=== PATIENT | female | born 2000 | race Caucasian/White ===

== ENCOUNTER 2024-01-09 10:11 | Emergency (ER) | payer BC, SELFPAY ==
[2024-01-09 10:17] VITALS: BP 119/72; PULSE 91; RESP 16; TEMP 37.1; O2SAT 97; BMI 29.0
--- NOTE | 2024-01-09 10:30 | PC.NURSE ---
Pt given spacer for her MSI. Pt knows how to use it,she didnt have one to use. Educated her on the importance of using it.
--- NOTE | 2024-01-09 11:38 | ED_ITS ---
HPI - URI/Sore Throat General Chief Complaint: Upper Respiratory Symptoms Stated Complaint: Cough white stuff coming up, back and ear pain Time Seen by Provider: 01/09/24 11:19 Source: patient Mode of arrival: Ambulatory History of Present Illness HPI Narrative: Patient has history of asthma. Denies does not want a test. Has had cough cold congestion wheezing since this past Friday. Was seen at a local emergency department this past Friday, had a refill of inhaler. But no cough medication or antibiotics given. No chest x-ray was done. Patient is using Flonase with some relief of the nasal congestion. Patient in no distress at this time. Vital signs are reassuring. Patient and family are planning to move to [place] today. Patient also given steroid pack on Friday. Related Data Previous Rx's Medication Instructions Recorded azithromycin 250 mg tablet 250 mg PO DAILY 4 days #4 tabs 01/09/24 (Zithromax) benzonatate 100 mg capsule 100 mg PO TID PRN cough #20 caps 01/09/24 Allergies Allergy/AdvReac Type Severity Reaction Status Date / Time amoxicillin Allergy Verified 01/09/24 10:17 Penicillins Allergy Verified 01/09/24 10:17 Review of Systems Review of Systems Narrative: GENERAL: negative chills, fatigue, malaise, fever, sweats. HEENT: negative sinus pain, ear pain, sore throat, positive nasal congestion RESPIRATORY: Positive wheezing/dyspnea, cough CARDIOVASCULAR: negative chest pain, palpitations GASTROINTESTINAL: negative nausea, vomiting, abdominal pain : negative dysuria, frequency, hematuria MUSCULOSKELETAL: negative muscle or bony pain SKIN: negative rash, skin lesions NEUROLOGIC: negative weakness, numbness Patient History Social History Smoking Status: Unknown if ever smoked Smoking Status: Unknown if ever smoked alcohol intake frequency: holidays/special occasions only Substance Use Type: does not use Exam Narrative Exam Narrative: GENERAL: in no distress, not toxic not dyspneic HEAD: Normocephalic. EYES: Pupils equal round ENT: Mucous membranes moist., bilateral nasal mucosa erythema and edema, no pharyngeal erythema edema or exudates. No malocclusion or trismus. NECK: Trachea midline. CARDIOVASCULAR: Regular rate and rhythm RESPIRATORY: Clear to auscultation. Breath sounds equal bilaterally. No wheezes, rales, or rhonchi. Patient is speaking full sentences. No respiratory distress. Has dry cough at bedside. GASTROINTESTINAL: Abdomen soft, non-tender EXTREMITIES: No gross deformities. BACK: No flank tenderness. NEURO: AOx4. SKIN: Warm and dry PSYCH: Not anxious, is cooperative Initial Vital Signs Initial Vital Signs: Vital Signs Temperature 98.8 F 01/09/24 10:17 Pulse Rate 91 H 01/09/24 10:17 Respiratory Rate 16 01/09/24 10:17 Blood Pressure 119/72 01/09/24 10:17 Pulse Oximetry 97 01/09/24 10:17 Oxygen Delivery Method Room Air 01/09/24 10:17 Course Orders Ordered: ED Orders 01/09/24 11:22 Respiratory Panel (Film Array) Stat 01/09/24 12:31 XR chest 1V Stat Discontinued Medications Azithromycin (Azithromycin 250 Mg Tablet) 500 mg PO NOW ONE Stop: 01/09/24 13:11 Last Admin: 01/09/24 13:29 Dose: 500 mg Documented By: RUDDY Benzonatate (Benzonatate 100 Mg Capsule) 100 mg PO NOW ONE Stop: 01/09/24 11:39 Last Admin: 01/09/24 12:03 Dose: 100 mg Documented By: RUDDY Oxymetazoline HCl (Oxymetazoline Nasal [place] 30 Ml) 2 sprays NASAL NOW ONE Stop: 01/09/24 11:39 Last Admin: 01/09/24 12:04 Dose: 2 sprays Documented By: RUDDY Vital Signs Vital signs: Vital Signs - 8 hr 01/09/24 10:17 01/09/24 13:03 Temperature 98.8 F 98.2 F Pulse Rate 91 H 76 Respiratory Rate 16 16 Blood Pressure 119/72 131/62 Pulse Oximetry 97 96 Oxygen Delivery Method Room Air Room Air MDM - URI/Sore Throat Lab Data Labs: Lab Results 01/09/24 Range/Units 11:22 Chlamy pneumoniae PCR Not detected (Not Detect) Adenovirus (PCR) Not detected (Not Detect) B.parapertussis DNA PCR Not detected (Not Detecte) Coronavirus OC43 (PCR) Not detected (Not Detect) Coronavirus HKU1 (PCR) Not detected (Not Detect) Coronavirus 229E (PCR) Not detected (Not Detect) SARS-CoV-2 (PCR) Not detected (Not Detecte) Coronavirus NL63 (PCR) Not detected (Not Detect) Human Metapneumovir PCR Not detected (Not Detect) Influenza Type A (PCR) Not detected (Not Detect) Influenza Type B (PCR) Not detected (Not Detect) M. pneumoniae (PCR) Detected H (Not Detect) Parainfluenza 1 (PCR) Not detected (Not Detect) Parainfluenza 2 (PCR) Not detected (Not Detect) Parainfluenza 3 (PCR) Not detected (Not Detect) Parainfluenza 4 (PCR) Not detected (Not Detect) RSV (PCR) Not detected (Not Detect) Entero/Rhino (PCR) Not detected (Not Detect) Imaging Data Chest x-ray: Radiologist's Impression: [address] [address] XRay Report Signed Patient: Missy Helm MR#: [id number] : 2000 Acct:[id number] Age/Sex: 23 / F Date of Service: 01/09/24 Loc: ED Accession Number: [id number] Procedure: XR chest 1V Ordering Provider: Allan Gutierrez MD PROCEDURE: XR CHEST 1V INDICATIONS: Cough TECHNIQUE: One view of the chest was acquired. COMPARISON: None. FINDINGS: Surgical changes and devices: None. Lungs and pleura: Right lung field opacity. No pleural effusions or pneumothorax. Mediastinum: Mediastinal contours appear normal. Heart size is normal. Bones and chest wall: No suspicious bony lesions. Overlying soft tissues appear unremarkable. IMPRESSION: Right upper lung field opacity consistent with pneumonia. Recommend follow-up radiographs to ensure resolution. Dictated by: Soren Chavez M.D. on 01/09/2024 at 13:00 Approved by: Soren Chavez M.D. on 01/09/2024 at 13:00 [facility] Narrative Medical decision making narrative: Patient has history of asthma. Denies does not want a test. Has had cough cold congestion wheezing since this past Friday. Was seen at a local emergency department this past Friday, had a refill of inhaler. But no cough medication or antibiotics given. No chest x-ray was done. Patient is using Flonase with some relief of the nasal congestion. Patient in no distress at this time. Vital signs are reassuring. Patient and family are planning to move to [place] today. Patient also given steroid pack on Friday. After history and exam chest x-ray Tessalon Perles Afrin spray, patient already has inhaler and a refill from previous emergency visit this past Friday from another facility. Has steroid pack already. [facility] Medical records reviewed: No recent visit here for this complaint. Differential considered: Includes but not limited to bronchitis viral syndrome COVID rhino virus bronchitis pneumonia seasonal allergies Lab Test results independently reviewed as above. Pertinent findings: Respiratory panel Imaging studies independently reviewed: Chest x-ray right-sided pneumonia Consultations: 1:00 p.m.. Spoke with [facility], infectious Disease, dr delgado, recommend Z-Davis for mycoplasma pneumonia. Monotherapy appropriate. Treatments: Tessalon Perles Afrin spray Zithromax Re-evaluations: 1:17 p.m.. Patient in no distress. Nasal congestion feels much better after Afrin. She does agree for Zithromax after my discussion with infectious disease. She has in no respiratory distress. Return precautions reviewed. She desires discharge home. Patient does understand not to use Afrin spray more than 3 days, 1 spray each nostril daily. Discussion: Appropriate for discharge home. Patient in no respiratory distress. Not requiring supplemental oxygen. Reviewed with her mycoplasma pneumoniae infection with pneumonia on the right side. Return precautions. She desires discharge home. Diagnosis: Atypical pneumonia Discharge Plan Departure Patient Disposition: Home Clinical Impression: Primary atypical pneumonia due to Mycoplasma pneumoniae Qualifiers: Laterality: right Lung location: unspecified part of lung Qualified Code(s): J15.7 - Pneumonia due to Mycoplasma pneumoniae Instructions: DI for Atypical Pneumonia Activity Restrictions/Additional Instructions: Your being treated for mycoplasma pneumoniae infection that is causing pneumonia on the right side of your lung. However, return if worse if any questions or concerns or your feeling more short of breath. Antibiotics have been started today and you need to continue tomorrow. You may use Afrin spray however no more than 3 days,, use 1 spray each nostril daily. Continue steroid pack from previous clinic. Continue your inhaler. Return if worse if any questions or concerns. See family doctor in a week for re-evaluation. Prescriptions: New benzonatate 100 mg capsule 100 mg PO TID PRN (Reason: cough) Qty: 20 0RF azithromycin [Zithromax] 250 mg tablet 250 mg PO DAILY 4 Days Qty: 4 0RF Rx Instructions: start on day 2 of therapy Stand Alone Forms: Patient Portal/API
[2024-01-09] MEDS: BENZONATATE 100 MG CAPSULE PO (12:03)
[2024-01-09] MEDS: OXYMETAZOLINE NASAL SPRAY 30 ML 2 SPRAYS NASAL (12:04)
[2024-01-09 12:20] LABS: Adenovirus Not Detected (Not Detect); B. parapertussis Not Detected (Not Detecte); Bordetella pertussis Not Detected (Not Detect); Chlamydophila pneumoniae Not Detected (Not Detect); Coronavirus 229E Not Detected (Not Detect); Coronavirus HKU1 Not Detected (Not Detect); Coronavirus NL 63 Not Detected (Not Detect); Coronavirus OC43 Not Detected (Not Detect); Human Metapneumovirus Not Detected (Not Detect); Human Rhinovirus/Enterovirus Not Detected (Not Detect); Influenza A Not Detected (Not Detect); Influenza B Not Detected (Not Detect); Parainfluenza Virus 1 Not Detected (Not Detect); Parainfluenza Virus 2 Not Detected (Not Detect); Parainfluenza Virus 3 Not Detected (Not Detect); Parainfluenza Virus 4 Not Detected (Not Detect); Respiratory Syncytial Virus Not Detected (Not Detect); SARS- CoV-2 Not Detected (Not Detecte)
--- NOTE | 2024-01-09 12:31 | DI.RAD.S_ITS ---
PROCEDURE: XR CHEST 1V INDICATIONS: Cough TECHNIQUE: One view of the chest was acquired. COMPARISON: None. FINDINGS: Surgical changes and devices: None. Lungs and pleura: Right lung field opacity. No pleural effusions or pneumothorax. Mediastinum: Mediastinal contours appear normal. Heart size is normal. Bones and chest wall: No suspicious bony lesions. Overlying soft tissues appear unremarkable. IMPRESSION: Right upper lung field opacity consistent with pneumonia. Recommend follow-up radiographs to ensure resolution. Dictated by: Soren Chavez M.D. on 01/09/2024 at 13:00 Approved by: Soren Chavez M.D. on 01/09/2024 at 13:00
[2024-01-09 12:40] LABS: Mycoplasma pneumoniae Detected (Not Detect)
[2024-01-09 13:03] VITALS: BP 131/62; PULSE 76; RESP 16; TEMP 36.8; O2SAT 96
[2024-01-09] MEDS: AZITHROMYCIN 250 MG TABLET 500 MG PO (13:29)
== END 2024-01-09 13:31 | disposition home or self-care (01) ==
PROVIDERS: Emergency Provider Emergency Medicine
DX: J15.7 Pneumonia due to Mycoplasma pneumoniae (principal); Z11.52 Encounter for screening for COVID-19
CPT/HCPCS: 71045; 87633; 99283; 99284